=== PATIENT | female | born 2000 | race African-American/Black ===

== ENCOUNTER 2024-02-20 07:37 | Inpatient (IN) ==
[2024-02-20] MEDS ORDERED: LIDOCAINE 1% LOCAL 20 ML VIAL INFIL PRN (07:42)
[2024-02-20] MEDS ORDERED: OXYTOCIN 30 UNITS/NSS 30 UNITS/500 ML BAG IV PRN ×2 (07:42→21:22)
--- NOTE | 2024-02-20 08:28 | History & Physical Report ---
Date of Service February 20, 2024 Assessment & Plan (1) Encounter for induction of labor: (2) Two vessel umbilical cord: (3) History of shoulder dystocia in prior , currently in third trimester: (4) Non-dilated cervix in term : Plan Admit for IOL VSS, FHT cat 1 Plan for librado leyva Pt desires epidural Admission and Anticipated Discharge Date Admission Date: February 20, 2024 History of Present Illness Primary Care Provider: Javier CarpioLaura LalaleaDO Kishore mcgee is a 23 y/o currently at 40 3/7 WGA (w ADDIE 02/17/24 as determined by US) who is here for IOL Her previous involved shoulder dystocia during delivery. Patient desires trying for another vaginal delivery. This has been complicated by 2VC, normal echo, normal growth u/s and testing. She has had regular appointments with OB since week 32. Gap in prental care from week 20-32 she says due to not getting scheduled appts. She denies fevers, fatigue, GARZA, SOB, chest pain, leg swelling, or n/v exceeding baseline - related symptoms. Mild, irregular contractions; + movement; no fluid loss, bloody show External uterine monitors used; FHT category 1, normal variability Blood type: O+ Antibody screen: Neg GBS: Neg Rubella: Immune VDRL/RPR: Neg Gonorrhea: Not detected Chalmydia: Not detected HIV: Non-reactive HbSAg: Non-reactive Allergies Allergy/AdvReac Type Severity Reaction Status Date / Time No Known Allergies Allergy Verified 02/20/24 07:58 Home Medications Medication Instructions Recorded Confirmed Type [id number] 1 tab PO DAILY 08/30/23 02/20/24 History [ Plus] Past Med/Surg History Problem List (Updated 02/20/24 @ 09:01 by Francisca Jim MD, FACOG) Non-dilated cervix in term History of shoulder dystocia in prior , currently in third trimester Encounter for induction of labor Two vessel umbilical cord Encounter for supervision of normal intrauterine in multigravida, antepartum Medical History (Updated 02/20/24 @ 09:01 by Francisca Jim MD, FACOG) Chicken pox Surgical History S/P tonsillectomy S/P ACL repair S/P lateral meniscal repair Family History Other Heart disease Denies family history of Ovarian cancer Breast cancer Colorectal cancer Social History (Updated 02/20/24 @ 07:58 by Angelika Manuel RN) Smoking Status: Never smoker Do You Dip or Chew Tobacco: No; Hx Alcohol Use: No Hx Substance Use: No Preferred Language: [place] Finish Painter Required: No Beliefs That Will Affect Care: None marital status: Single marital status details: Isacc Goel (27) [phone] Current Living Situation Comment: FOB, son, 2 cats-FOB changing litter current occupational status: unemployed Feels Safe at Home: Yes Safety Concerns: Feels Safe At This Time Assistive Devices: None Review of Systems Review of Systems: Per HPI Physical Exam Physical Exam: General: Alert and oriented. No acute distress CV: Regular rate and rhythm. No murmurs. Respiratory: CTA bilaterally. No increased work of breathing. Symmetrical chest rise. Abdomen: Gravid: Soft, nontender upon palpation SVE: 1.5/60/-[address] Jim Lower extremities: No LE edema. No deep calf pain. Results & Data Results & Data Vital Signs (Past 12 Hours) Vital Signs Temp Pulse Resp BP 02/20/24 07:55 36.6 C 18 02/20/24 07:53 60 120/70 Supervising Physician Co-Signing Physician Notes Resident Physician Supervision Note: I was present with Dr. Keller during the history and exam. I discussed the case with the resident and agree with the findings and plan as documented in the note. Any exceptions or clarifications are listed here: pt here for planned induction. yesterday in office discussed her past history. Shoulder dystocia history reviewed. She feels that this baby is smaller and is not concerned about this happening but made well aware that it could happen again. she does not want c/s delivery which was offered, she wants to attempt vaginal delivery. SVE today unchanged from yesterday. PROCEDURE:sse cx visualized, grasped on ant lip with ring forcep, leyva through os and balloon inflated with 40cc sterile water. Spec removed, leyva taped to leg. pt janice well. fhts categ 1. will begin pitocin. efw 7-8#. rhpos, ri, gbs neg. Documented By: Francisca Jim MD, FACOG
[2024-02-20 08:48] LABS: Hematocrit (blood only) 37.9 % (37.0-47.0); Hemoglobin 12.6 g/dl (12.0-16.0); Mean Corpuscular Hemoglobin 29.4 pg (25.0-34.0); Mean Corpuscular Hgb Conc 33.2 g/dL (32.0-36.0); Mean Corpuscular Volume 88.3 fL (80.0-100.0); Mean Platelet Volume 11.2 fL (9.4-12.4); Platelet Count 201 K/uL (130-400); RDW Coefficient of Variation 13.1 % (11.5-14.5); RDW Standard Deviation 42.5 fL (36.4-46.3); Red Blood Count 4.29 M/uL (4.20-5.40); White Blood Count 10.44 K/ul (4.8-10.8)
[2024-02-20] MEDS: OXYTOCIN 30 UNITS/NSS 30 UNITS/500 ML BAG IV PRN (09:04)
[2024-02-20] MEDS: LACTATED RINGER'S 1,000 ML IV SCH (09:04)
--- NOTE | 2024-02-20 09:05 | Obstetrical Progress Note ---
Date of Service February 20, 2024 Assessment & Plan (1) Non-dilated cervix in term : (2) Encounter for induction of labor: Plan elyva placed, pitocin begun Admission and Anticipated Discharge Date Admission Date: February 20, 2024 Subjective see prior h&p note for documentation of procedure. that type of note did not provide billing codes for procedure, so this note was opened Results & Data Vital Signs (Past 12 Hours) Vital Signs Temp Pulse Resp BP 02/20/24 07:55 97.9 F 18 02/20/24 07:53 60 120/70 PG Care Time/CCT Total # of Minutes Spent Total Time Spent with Patient: Total time spent is greater than 50% in coordination of care (as documented) at patient's floor/unit and/or counseling patient: Coding Level of Care Code None Diagnoses Non-dilated cervix in term O34.40 Encounter for induction of labor Z34.90 CPT Codes Misx Procedure Codes - 26709 Placement of cervical dilator: 23328 Placement of cervical dilator ([id number]) FACILITIES COORDINATOR Miscellaneous Codes Misx Procedure Codes 87192 Placement of cervical dilator
[2024-02-20] MEDS: LIDOCAINE 2%/EPINEPHRINE 1:200,000 20 ML PF ONE (09:52)
[2024-02-20] MEDS: fentANYL 2 MCG/ML BUPIVacaine 0.125%-NSS 100ML BAG ONE (09:53)
[2024-02-20] MEDS: BUPIVACAINE 0.25% PF 30 ML VIAL ONE (09:57)
[2024-02-20] MEDS: SODIUM CHLORIDE 0.9% PF INJ 10 ML VIAL ONE (09:58)
[2024-02-20] MEDS: fentaNYL citrate PF 100 MCG/2 ML VIAL ONE (09:58)
--- NOTE | 2024-02-20 10:00 | Anesthesiology Consultation ---
Date of Service February 20, 2024 Assessment & Plan Chart Review Chart Review: Acceptable Risk for Labor Epidural Consults Requested none History Height/Weight Height: 5 ft 3 in Weight: 89.811 kg Allergies Allergy/AdvReac Type Severity Reaction Status Date / Time No Known Allergies Allergy Verified 02/20/24 07:58 Medications Home Medications Medication Instructions Recorded Confirmed Last Taken [id number] 1 tab PO DAILY 08/30/23 02/20/24 02/18/24 [ Plus] Active Medications Generic Name Dose Route Start Last Admin Trade Name Freq PRN Reason Stop Dose Admin Oxytocin 30 units in 500 mls @ 2 mls/hr 02/20/24 07:42 02/20/24 09:04 Pitocin 30 Units/Nss IV 02/22/24 07:41 0.06 units/hr .Q24H PRN 1 mls/hr Labor Induction/Augmentation Administration Protocol 0.12 UNITS/HR Past Medical History Medical History (Updated 02/20/24 @ 09:01 by Francisca Jim MD, FACOG) Chicken pox Past Family History Family History Other Heart disease Denies family history of Ovarian cancer Breast cancer Colorectal cancer Past Surgical History Surgical History S/P tonsillectomy S/P ACL repair S/P lateral meniscal repair Social History Smoking Status: Never smoker Do You Dip or Chew Tobacco: No Hx Alcohol Use: No Hx Substance Use: No substance use type: does not use Physical Exam Vital Signs Last Vital Signs Temp 36.8 C 02/20/24 09:18 Pulse 68 02/20/24 09:58 Resp 18 02/20/24 07:55 BP 121/57 L 02/20/24 09:58 Pulse Ox 100 02/20/24 09:55 Testing Laboratory Results 02/20/24 08:06
[2024-02-20] MEDS ORDERED: LIDOCAINE 2% MPF LOCAL 5 ML VIAL EPI PRN (10:02)
[2024-02-20] MEDS ORDERED: fentaNYL citrate PF 100 MCG/2 ML VIAL EPI PRN (10:02)
[2024-02-20] MEDS ORDERED: BUPIVACAINE 0.25% PF 30 ML VIAL EPI PRN (10:02)
[2024-02-20] MEDS ORDERED: NALOXONE HCL 0.4 MG/1 ML VIAL/CARP IV PRN (10:02)
[2024-02-20] MEDS ORDERED: diphenhydrAMINE 50 MG/ML VIAL IV PRN (10:02)
[2024-02-20] MEDS ORDERED: NALOXONE HCL 1 MG in SODIUM CHLORIDE 0.9% 1,000 ML IV PRN (10:02)
[2024-02-20] MEDS ORDERED: SODIUM CHLORIDE 0.9% PF INJ 10 ML VIAL EPI PRN (10:02)
[2024-02-20] MEDS ORDERED: ROPIVACAINE 0.5% PF 5 MG/ML 20 ML VIAL EPI PRN (10:02)
[2024-02-20] MEDS ORDERED: PROMETHAZINE 6.25 MG/50.25 ML BAG IV PRN (10:02)
[2024-02-20] MEDS ORDERED: ePHEDrine sulfate 50 MG/ML AMP IV PRN (10:02)
[2024-02-20] MEDS ORDERED: NALBUPHINE HCL INJ 10 MG/ML AMP IV PRN (10:02)
[2024-02-20] MEDS: ONDANSETRON INJ 2 MG/ML 2 ML VIAL IV PRN (10:25)
[2024-02-20] MEDS: SODIUM CHLORIDE 0.9% PF INJ 10 ML VIAL EPI STA (10:36)
[2024-02-20] MEDS: BUPIVACAINE 0.25% PF 30 ML VIAL EPI STA (10:36)
[2024-02-20] MEDS: LIDOCAINE 2%/EPINEPHRINE 1:200,000 20 ML PF EPI STA (10:36)
[2024-02-20] MEDS: fentaNYL citrate PF 100 MCG/2 ML VIAL EPI STA (10:36)
--- NOTE | 2024-02-20 12:40 | Labor Progress Brief Note ---
Date of Service February 20, 2024 Subjective no pain issues. epidural in place Assessment & Plan (1) Encounter for induction of labor: (2) Two vessel umbilical cord: (3) History of shoulder dystocia in prior , currently in third trimester: Plan cont with pitocin. fhts categ 1. Admission and Anticipated Discharge Date Admission Date: February 20, 2024 Physical Exam Constitutional: WD/WN, vitals as above Genitourinary: Manual OB Exam: + cervical dilation 4 cm, + cervical effacement 60%, + station -2 and + amniotic fluid (arom forebag) clear OB Exam Monitor Tracing: + external FHT monitor used, + external uterine monitor used, + category I and + normal FHT variability Results & Data Vital Signs (Past 12 Hours) Vital Signs Temp Pulse Resp BP Pulse Ox 02/20/24 12:35 67 98 02/20/24 12:30 99 02/20/24 12:30 59 L 02/20/24 12:30 55 L 110/57 L 02/20/24 12:25 59 L 98 02/20/24 12:23 50 L 117/59 L 02/20/24 12:22 63 93 02/20/24 12:20 62 99 02/20/24 12:19 60 112/58 L 02/20/24 12:15 64 98 02/20/24 12:13 66 109/56 L 02/20/24 12:10 78 100 02/20/24 12:08 62 111/57 L 02/20/24 12:05 84 100 02/20/24 12:04 63 109/59 L 02/20/24 12:00 59 L 99 02/20/24 11:58 65 107/62 02/20/24 11:55 59 L 97 02/20/24 11:54 61 115/57 L 02/20/24 11:50 62 98 02/20/24 11:49 60 116/60 02/20/24 11:45 59 L 98 02/20/24 11:44 55 L 107/55 L 02/20/24 11:40 57 L 99 02/20/24 11:38 56 L 110/63 02/20/24 11:35 63 99 02/20/24 11:33 67 118/61 02/20/24 11:30 63 99 02/20/24 11:28 64 113/59 L 02/20/24 11:25 98 02/20/24 11:25 61 02/20/24 11:25 65 115/53 L 02/20/24 11:20 70 97 02/20/24 11:19 59 L 113/57 L 02/20/24 11:15 66 98 02/20/24 11:13 65 116/68 02/20/24 11:10 69 99 02/20/24 11:09 57 L 117/62 02/20/24 11:05 66 114/59 L 98 02/20/24 11:00 16 02/20/24 11:00 97.7 F 62 18 98 02/20/24 10:59 70 116/64 02/20/24 10:55 63 98 02/20/24 10:54 68 121/63 02/20/24 10:50 70 98 02/20/24 10:48 67 111/57 L 02/20/24 10:45 20 02/20/24 10:45 69 98 02/20/24 10:44 69 117/67 02/20/24 10:40 71 99 02/20/24 10:39 66 114/62 02/20/24 10:35 68 119/66 99 02/20/24 10:30 18 02/20/24 10:30 70 99 02/20/24 10:29 70 120/65 02/20/24 10:25 75 99 02/20/24 10:24 75 121/59 L 02/20/24 10:20 73 99 02/20/24 10:19 74 120/67 02/20/24 10:15 18 02/20/24 10:15 80 100 02/20/24 10:10 86 99 02/20/24 10:08 82 124/64 02/20/24 10:05 65 100 02/20/24 10:04 61 117/56 L 02/20/24 10:00 16 02/20/24 10:00 68 100 02/20/24 09:58 68 121/57 L 02/20/24 09:56 73 115/59 L 02/20/24 09:55 18 02/20/24 09:55 68 100 02/20/24 09:54 66 110/61 02/20/24 09:52 71 110/55 L 02/20/24 09:50 100 02/20/24 09:50 62 02/20/24 09:50 63 114/58 L 02/20/24 09:48 67 123/56 L 02/20/24 09:45 65 98 02/20/24 09:40 68 99 02/20/24 09:35 68 100 02/20/24 09:30 68 99 02/20/24 09:25 75 100 02/20/24 09:20 72 100 02/20/24 09:18 98.2 F 02/20/24 09:03 60 112/63 02/20/24 07:55 97.9 F 18 02/20/24 07:53 60 120/70 Coding Level of Care Code None Diagnoses Encounter for induction of labor Z34.90 Two vessel umbilical cord Q27.0 History of shoulder dystocia in prior , currently in third trimester O09.293
[2024-02-20] MEDS: fentANYL 2 MCG/ML BUPIVacaine 0.125%-NSS 100ML BAG EPI PRN (15:33)
--- NOTE | 2024-02-20 16:36 | Labor Progress Brief Note ---
Date of Service February 20, 2024 Subjective comfortable with epidural. denies pressure Assessment & Plan (1) Encounter for induction of labor: (2) History of shoulder dystocia in prior , currently in third trimester: (3) Two vessel umbilical cord: Plan good cx change. fhts categ 1. cont with pit Admission and Anticipated Discharge Date Admission Date: February 20, 2024 Physical Exam Constitutional: WD/WN, vitals as above Genitourinary: Manual OB Exam: + cervical dilation 8 cm, + cervical effacement 100% and + station + 1 OB Exam Monitor Tracing: + external FHT monitor used, + external uterine monitor used (q2 pit at 9), + category I and + normal FHT variability Results & Data Vital Signs (Past 12 Hours) Vital Signs Temp Pulse Resp BP Pulse Ox 02/20/24 16:31 61 100 02/20/24 16:26 68 96 02/20/24 16:21 65 90 02/20/24 16:20 62 105/58 L 02/20/24 16:19 64 87 L 02/20/24 16:16 67 100 02/20/24 16:11 61 100 02/20/24 16:06 57 L 90 02/20/24 16:04 66 132/63 02/20/24 16:01 72 97 02/20/24 16:00 20 02/20/24 16:00 20 02/20/24 15:56 63 100 02/20/24 15:51 62 100 02/20/24 15:49 57 L 136/69 02/20/24 15:46 64 99 02/20/24 15:41 71 100 02/20/24 15:36 60 89 L 02/20/24 15:34 58 L 118/61 02/20/24 15:33 59 L 86 L 02/20/24 15:31 60 100 02/20/24 15:30 20 02/20/24 15:30 20 02/20/24 15:26 57 L 92 02/20/24 15:21 61 100 02/20/24 15:19 58 L 110/62 02/20/24 15:16 61 92 02/20/24 15:13 55 L 87 L 02/20/24 15:11 53 L 96 02/20/24 15:06 98 02/20/24 15:06 54 L 02/20/24 15:06 63 87 L 02/20/24 15:03 61 119/66 02/20/24 15:01 56 L 98 02/20/24 15:00 20 02/20/24 15:00 20 02/20/24 14:56 83 L 02/20/24 14:56 55 L 02/20/24 14:56 60 83 L 02/20/24 14:51 60 96 02/20/24 14:49 59 L 124/69 02/20/24 14:46 60 99 02/20/24 14:41 61 92 02/20/24 14:36 57 L 96 02/20/24 14:34 57 L 118/67 02/20/24 14:31 59 L 95 02/20/24 14:26 100 02/20/24 14:26 52 L 02/20/24 14:26 50 L 82 L 02/20/24 14:21 58 L 95 02/20/24 14:20 54 L 119/55 L 02/20/24 14:16 63 97 02/20/24 14:11 58 L 98 02/20/24 14:06 57 L 99 02/20/24 14:05 50 L 118/57 L 02/20/24 14:04 66 86 L 02/20/24 14:01 60 92 02/20/24 14:00 20 02/20/24 14:00 20 02/20/24 13:56 62 96 02/20/24 13:55 62 86 L 02/20/24 13:51 61 97 02/20/24 13:50 58 L 98/55 L 02/20/24 13:46 60 99 02/20/24 13:41 57 L 100 02/20/24 13:36 68 87 L 02/20/24 13:35 64 95 02/20/24 13:34 51 L 116/62 02/20/24 13:30 63 20 97 02/20/24 13:29 64 86 L 02/20/24 13:25 62 98 02/20/24 13:20 65 99 02/20/24 13:19 65 120/59 L 02/20/24 13:15 61 98 02/20/24 13:10 59 L 98 02/20/24 13:05 59 L 114/55 L 97 02/20/24 13:00 59 L 20 99 02/20/24 12:55 64 98 02/20/24 12:50 96 02/20/24 12:50 60 02/20/24 12:50 65 129/66 02/20/24 12:45 58 L 97 02/20/24 12:40 63 96 02/20/24 12:35 67 98 02/20/24 12:30 20 02/20/24 12:30 20 02/20/24 12:30 99 02/20/24 12:30 59 L 02/20/24 12:30 55 L 110/57 L 02/20/24 12:25 59 L 98 02/20/24 12:23 50 L 117/59 L 02/20/24 12:22 63 93 02/20/24 12:20 62 99 02/20/24 12:19 60 112/58 L 02/20/24 12:15 64 98 02/20/24 12:13 66 109/56 L 02/20/24 12:10 78 100 02/20/24 12:08 62 111/57 L 02/20/24 12:05 84 100 02/20/24 12:04 63 109/59 L 02/20/24 12:00 59 L 99 02/20/24 11:58 65 107/62 02/20/24 11:55 59 L 97 02/20/24 11:54 61 115/57 L 02/20/24 11:50 62 98 02/20/24 11:49 60 116/60 02/20/24 11:45 59 L 98 02/20/24 11:44 55 L 107/55 L 02/20/24 11:40 57 L 99 02/20/24 11:38 56 L 110/63 02/20/24 11:35 63 99 02/20/24 11:33 67 118/61 02/20/24 11:30 63 99 02/20/24 11:28 64 113/59 L 02/20/24 11:25 98 02/20/24 11:25 61 02/20/24 11:25 65 115/53 L 02/20/24 11:20 70 97 02/20/24 11:19 59 L 113/57 L 02/20/24 11:15 66 98 02/20/24 11:13 65 116/68 02/20/24 11:10 69 99 02/20/24 11:09 57 L 117/62 02/20/24 11:05 66 114/59 L 98 02/20/24 11:00 16 02/20/24 11:00 97.7 F 62 18 98 02/20/24 10:59 70 116/64 02/20/24 10:55 63 98 02/20/24 10:54 68 121/63 02/20/24 10:50 70 98 02/20/24 10:48 67 111/57 L 02/20/24 10:45 20 02/20/24 10:45 69 98 02/20/24 10:44 69 117/67 02/20/24 10:40 71 99 02/20/24 10:39 66 114/62 02/20/24 10:35 68 119/66 99 02/20/24 10:30 18 02/20/24 10:30 70 99 02/20/24 10:29 70 120/65 02/20/24 10:25 75 99 02/20/24 10:24 75 121/59 L 02/20/24 10:20 73 99 02/20/24 10:19 74 120/67 02/20/24 10:15 18 02/20/24 10:15 80 100 02/20/24 10:10 86 99 02/20/24 10:08 82 124/64 02/20/24 10:05 65 100 02/20/24 10:04 61 117/56 L 02/20/24 10:00 16 02/20/24 10:00 68 100 02/20/24 09:58 68 121/57 L 02/20/24 09:56 73 115/59 L 02/20/24 09:55 18 02/20/24 09:55 68 100 02/20/24 09:54 66 110/61 02/20/24 09:52 71 110/55 L 02/20/24 09:50 100 02/20/24 09:50 62 02/20/24 09:50 63 114/58 L 02/20/24 09:48 67 123/56 L 02/20/24 09:45 65 98 02/20/24 09:40 68 99 02/20/24 09:35 68 100 02/20/24 09:30 68 99 02/20/24 09:25 75 100 02/20/24 09:20 72 100 02/20/24 09:18 98.2 F 02/20/24 09:03 60 112/63 02/20/24 07:55 97.9 F 18 02/20/24 07:53 60 120/70 Coding Level of Care Code None Diagnoses Encounter for induction of labor Z34.90 History of shoulder dystocia in prior , currently in third trimester O09.293 Two vessel umbilical cord Q27.0
[2024-02-20] MEDS ORDERED: LACTATED RINGER'S 1,000 ML IV SCH (18:00)
--- NOTE | 2024-02-20 18:22 | Delivery Summary ---
Vaginal Delivery Summary Date of Service February 20, 2024 Vaginal Delivery Summary The patient dilated to complete and pushed to deliver a viable female Apgars 9 and 9 via over intact perineum. Patient pushed effectively and rapidly delivered shoulders and body delivered. Mouth and nose bulb suctioned and infant was vigorous and crying at . Cord clamped at 30 seconds of life and infant to maternal abdomen where the cord was then doubly clamped and cut. Placenta delivered spontaneously and intact, three-vessel cord. Hemostasis achieved with dilute pitocin and uterine massage and drainage of the bladder for approximately 50 cc under sterile conditions. Small labial separation on left was not bleeding and therefore not repaired. Cervix and sulci intact. QBL 25 cc. Mother and baby stable in recovery. [facility] Vaginal Delivery Charge Delivery Type Details:
--- NOTE | 2024-02-20 18:39 | Anesthesia Procedure Note ---
Date of Service February 20, 2024 Anesthesia Post Epidural Note Vital Signs Vital Signs: Temp Pulse Resp BP Pulse Ox 36.9 C 80 20 120/61 100 02/20/24 17:00 02/20/24 18:26 02/20/24 17:30 02/20/24 18:25 02/20/24 18:26 Notes Mental Status: alert / awake / arousable Nausea / Vomiting: adequately controlled Pain: adequately controlled Airway Patency, RR, SpO2: stable & adequate BP & HR: stable & adequate Hydration State: stable & adequate Neuraxial Anesthesia: was administered and sensory block is resolving Anesthetic Complications: no major complications apparent and Pt Satisfied with anesthetic care Epidural: Removed without complications and With tip intact
[2024-02-20] MEDS: ePHEDrine sulfate 50 MG/ML AMP ONE (18:43)
[2024-02-20] MEDS ORDERED: HYDROCORTISONE ACETATE 25 MG SUPP PR PRN (21:22)
[2024-02-20] MEDS ORDERED: ACETAMINOPHEN 325 MG TAB PO PRN (21:22)
[2024-02-20] MEDS ORDERED: oxyCODONE/ACETAMINOPHEN 5mg/325mg TAB PO PRN (21:22)
[2024-02-20] MEDS: DIPHTHER/TETAN/PERTUS Vaccine (Tdap, Adol/Adult) 0.5mL IM ONE (21:34)
[2024-02-20] MEDS: BENZOCAINE 20% SPRY 85 APPLN/85 GM CAN EXT PRN (21:39)
[2024-02-20] MEDS: DOCUSATE SODIUM 100 MG CAP PO SCH (21:39)
[2024-02-20] MEDS: IBUPROFEN 600 MG TAB PO PRN (23:09)
--- NOTE | 2024-02-21 06:06 | Obstetrical Progress Note ---
Date of Service <Drake Keller MD - Last Filed: 02/21/24 07:34> February 21, 2024 Assessment & Plan <Drake Keller MD - Last Filed: 02/21/24 07:34> (1) care and examination: Plan PPD#1 s/p term : Stable. Rh+, gbs -, ri Continue routine care, continue OOB and ambulation, diet as tolerated Would like to go home tonight if cleared by peds <Francisca Jim MD, FACOG - Last Filed: 02/21/24 07:48> (1) care and examination: Subjective <Drake Keller MD - Last Filed: 02/21/24 07:34> Kishore is a 23 y/o female who is PPD#1 following at term. Minimal abd pain/cramping, ~4/10, mostly RLQ Is voiding, tolerating meals, & ambulating normally Having appropriate lochia Planning for exclusive . Constitutional: no fever, no chills or no sweats Respiratory: no dyspnea Cardiovascular: no chest pain, no palpitations or no calf pain Breast: no breast pain Gastrointestinal: no nausea or no vomiting Genitourinary (female): no dysuria Neurologic: no headache(s) no changes in vision, no headaches Physical Exam <Drake Keller MD - Last Filed: 02/21/24 07:34> General: Alert, oriented. No acute distress. Cardiac: Regular rate and rhythm, no murmurs, rubs, or gallops. Respiratory: Clear to auscultation bilaterally. No increased work of breathing. Symmetrical chest rise. No respiratory distress. Abdomen: Soft, nontender, nondistended. Bowel sounds present. Uterus: Uterine fundus firm, nontender, palpable 2cm below the umbilicus Lower extremities: No lower extremity edema or swelling. No deep calf pain. Results & Data <Drake Keller MD - Last Filed: 02/21/24 07:34> Vital Signs (Past 12 Hours) Vital Signs Temp Pulse Pulse Resp BP BP Pulse Ox 02/21/24 04:30 36.4 C L 56 L 18 92/37 L 02/21/24 00:40 37.2 C 48 L 18 135/66 02/20/24 21:25 37.4 C 58 L 18 107/61 02/20/24 20:24 58 L 125/62 02/20/24 20:20 18 02/20/24 20:10 65 117/64 02/20/24 19:55 62 117/62 02/20/24 19:54 18 02/20/24 19:40 71 113/57 L 02/20/24 19:25 69 124/66 02/20/24 19:20 18 02/20/24 19:10 70 125/65 02/20/24 19:05 18 02/20/24 19:05 36.7 C 18 02/20/24 18:55 74 115/53 L 02/20/24 18:40 83 123/67 02/20/24 18:26 80 100 02/20/24 18:25 82 120/61 02/20/24 18:21 95 H 100 02/20/24 18:19 171 H 124/64 02/20/24 18:16 90 100 02/20/24 18:11 124 H 100 02/20/24 18:08 95 H 87 L 02/20/24 18:06 95 H 100 02/20/24 18:04 72 131/73 Supervising Physician <Francisca Jim MD, FACOG - Last Filed: 02/21/24 07:48> Co-Signing Physician Notes Resident Physician Supervision Note: I was present with Dr. Keller during the history and exam. I discussed the case with the resident and agree with the findings and plan as documented in the note. Any exceptions or clarifications are listed here: stable, doing well. wants to go home later today. breast feeding, rhpos, ri. abd soft 2down nt. ext nt calves. ppd#1 s/p , dc home later. instructions reviewed. f/u 6 wk pp check. Documented By: Francisca Jim MD, FACOG Resident Activity Tracking <Drake Keller MD - Last Filed: 02/21/24 07:34> Resident Involvement: Resident Care Provided Care Provided: [facility] Medicine and OB Delivery
[2024-02-21] MEDS: PRENATAL VITAMIN 1 TAB PO SCH (08:03)
[2024-02-21] MEDS ORDERED: INFLUENZA VACC TS2024-25(6m+)/PF (IIV3) 0.5mL Syr IM ONE (08:18)
[2024-02-21] MEDS: INFLUENZA VACC TS2024-25(6m+)/PF (IIV3) 0.5mL Syr IM ONE (11:11)
[2024-02-21 17:45] VITALS: BP 122/74; PULSE 71; RESP 20; TEMP 98.4; O2SAT 98
[2024-02-21] MEDS ORDERED: bisacodyL 5 MG TABEC PO SCH (20:00)
== END 2024-02-21 19:30 | disposition home or self-care (01) | DRG 807 ==
LOC: 4S1 07:37 → 4E2 21:23